=== PATIENT | male | born 1980 ===

== ENCOUNTER 2025-05-25 23:21 | Emergency (ER) | payer SELFPAY ==
[2025-05-25 23:30] VITALS: BP 138/100; PULSE 105; RESP 18; TEMP 36.9; O2SAT 98; BMI 26.6
--- NOTE | 2025-05-26 00:29 | ED.PSYCH ---
HPI - Psych General Chief Complaint: Psychiatric Symptoms Stated Complaint: KWASI Time Seen by Provider: 05/26/25 00:28 History of Present Illness HPI Narrative: 44-year-old male came in with a motorcycle police officer who was concerned that the patient may have suicide ideations due to throwing his personal belongings off the bridge by deception. When questioned here in the ED, the patient adamantly denies any suicide or homicidal ideations. Related Data Allergies Allergy/AdvReac Type Severity Reaction Status Date / Time No Known Drug Allergies Allergy Verified 05/26/25 00:24 Review of Systems Review of Systems ROS Unobtainable: All systems reviewed & are unremarkable except as noted in HPI and below Exam Narrative Exam Narrative: General: Patient appears to be in no acute distress, acting appropriately Head: normocephalic, atraumatic, HEENT: Pupils equal round reactive, eyes tracking well, neck supple, no JVD Heart: regular rate and rhythm, no murmurs, rubs, or gallops heard Lungs: clear to auscultation, no adventitious sounds Abdomen: soft , nontender, nondistended, positive bowel sounds Neurological: no focal neurological signs, moving all extremities well, alert and oriented x3, Psych: good judgment ,good insight, mood is normal. Initial Vital Signs Initial Vital Signs: Vital Signs Temperature 98.5 F 05/25/25 23:30 Pulse Rate 105 H 05/25/25 23:30 Respiratory Rate 18 05/25/25 23:30 Blood Pressure 138/100 H 05/25/25 23:30 Pulse Oximetry 98 05/25/25 23:30 Oxygen Delivery Method Room Air 05/25/25 23:30 Course Vital Signs Vital signs: Vital Signs - 8 hr 05/25/25 23:30 Temperature 98.5 F Pulse Rate 105 H Respiratory Rate 18 Blood Pressure 138/100 H Pulse Oximetry 98 Oxygen Delivery Method Room Air MDM - Psych MDM Narrative Medical decision making narrative: 44-year-old male who appears depressed and was found [place] by the police and brought here for concerns of suicide ideation. Patient was initially asked to stay for an evaluation. Patient adamantly refused to stay here in the ED. He denied multiple times that he has any suicide or homicide ideation. He denies any physical symptoms. Patient will be released back to the police with a medical clearance and clearance for residential. Discharge Plan Departure Patient Disposition: Home Clinical Impression: Depression Qualifiers: Depression Type: other depression Qualified Code(s): F32.89 - Other specified depressive episodes Instructions: DI for Depression -- Adult Activity Restrictions/Additional Instructions: Patient is medically cleared at this time and fit for residential. Stand Alone Forms: Patient Portal/API
--- NOTE | 2025-05-26 00:46 | PC.NURSE ---
Spent a good hour with patient and State liner assembler, Provider in room, trying to convince patient on reasons to stay and talk to social sciences chair. Pt refusing to stay. pt able to talk more about upcoming events, throughout the entire visit still adamant he had gone to the bridge to watch the sunrise pt became more forthcoming with state liner assembler providing more information about where he lives and life circumstances. states he is back living with his parents, currently unemployed, and upcoming nursing home time. State liner assembler and provider decided it was safe for patient to discharge with the officer. Did not receive any KWASI paperwork from state liner assembler.
== END 2025-05-26 00:59 | disposition home or self-care (01) ==
PROVIDERS: Emergency Provider Family Medicine
DX: R45.851 Suicidal ideations (principal)
CPT/HCPCS: 99283